=== PATIENT | male | born 1980 | race Caucasian/White ===

== ENCOUNTER → 2023-07-22 10:18 | Outpatient (REF) | payer OTHER, SELFPAY | LOC: RAD 10:18 | PROVIDERS: ATTENDING PHYSICIAN Nurse Practitioner Family | DX: M54.50 Low back pain, unspecified (principal) | CPT/HCPCS: 72110 ==

== ENCOUNTER → 2023-08-06 15:37 | Outpatient (REF) | payer OTHER, SELFPAY | LOC: PAVMRI 15:37 | PROVIDERS: ATTENDING PHYSICIAN Nurse Practitioner Family | DX: M25.561 Pain in right knee (principal) | CPT/HCPCS: 73721 ==